=== PATIENT | male | born 1965 | race Caucasian/White ===

== ENCOUNTER 2024-08-03 18:15 | Inpatient (IN) | payer BC, OTHER, SELFPAY ==
[~2024-08-03] VITALS: Ht 182.9 cm; Wt 78.5 kg
[2024-08-03] MEDS: MORPHINE 4 MG/ML 1ML VIAL IV PRN (18:44)
[2024-08-03] MEDS ORDERED: ISOVUE-370 76% 100ML VIAL As Ordered ONE (18:50)
[2024-08-03 19:05] LABS: BASO # 0.1 10^3/uL (0.0-0.2); BASO % 0.7 % (0.0-1.0); EOS # 0.2 10^3/uL (0.0-0.5); HEMATOCRIT 42.4 % (42.0-52.0); HEMOGLOBIN 14.6 g/dl (13.5-17.5); LYMPH # 2.7 10^3/uL (1.5-5.0); LYMPH % 27.9 % (24.0-44.0); MEAN CORPUSCULAR HEMOGLOBIN 33.6 pg (27.0-33.0); MEAN CORPUSCULAR HGB CONC 34.4 g/dl (32.0-36.5); MEAN CORPUSCULAR VOLUME 97.7 fl (80.0-96.0); MONO # 0.8 10^3/uL (0.0-0.8); MONO % 8.1 % (2.0-8.0); NEUTROPHILS # 5.9 10^3/uL (1.5-8.5); PLATELET COUNT, AUTOMATED 226 10^3/uL (150-450); RED BLOOD COUNT 4.34 10^6/uL (4.30-6.10); WHITE BLOOD COUNT 9.7 10^3/uL (4.0-10.0)
[2024-08-03 19:13] LABS: INR 0.96; PROTHROMBIN TIME 13.1 SECONDS (12.5-14.5)
[2024-08-03 19:30] LABS: ETHYL ALCOHOL (ETHANOL) 0.146 % (0.000-0.010)
[2024-08-03 19:31] LABS: BLOOD UREA NITROGEN 14 MG/DL (9-23); CALCIUM LEVEL 9.2 MG/DL (8.5-10.1); CARBON DIOXIDE LEVEL 21 MMOL/L (20-31); CHLORIDE LEVEL 101 MMOL/L (98-107); CREATININE FOR GFR 0.86 MG/DL (0.70-1.30); GLOMERULAR FILTRATION RATE > 60.0 (>56); GLUCOSE, FASTING 72 MG/DL (60-100); POTASSIUM SERUM 4.2 MMOL/L (3.5-5.1); SODIUM LEVEL 134 MMOL/L (136-145)
[2024-08-03] MEDS ORDERED: OXAZEPAM 15MG CAP PO ONE (20:00)
[2024-08-03] MEDS ORDERED: ACETAMINOPHEN 325 MG TAB PO PRN (20:45)
[2024-08-03] MEDS ORDERED: BUPR150T12 PO (21:13)
[2024-08-03] MEDS ORDERED: TAMS1CAP17 PO (21:13)
[2024-08-03] MEDS ORDERED: LORazepam 2 MG TAB PO PRN (21:15)
[2024-08-03] MEDS ORDERED: COMBIVENT RESPIMAT 100-20MCG INHALER 4GM INH PRN (21:15)
[2024-08-03] MEDS ORDERED: HOME MED LIST COMPLETE! XX SCH (21:15)
[2024-08-03] MEDS: THIAMINE 100 MG TAB PO SCH (21:59)
[2024-08-03 22:40] VITALS: BP 139/75
[2024-08-03 22:43] VITALS: BP 129/81; TEMP 98.8; O2SAT 97
[2024-08-03] MEDS: KETOROLAC TROMETHAMINE 10 MG TAB PO PRN (23:24)
[2024-08-04] VITALS (11 sets, daily range): BP systolic 106–136; BP diastolic 65–83; TEMP 97.2–98.1; O2SAT 92–98
[2024-08-04] MEDS: FOLIC ACID 1MG TAB PO SCH (08:45)
[2024-08-04] MEDS: CYCLOBENZAPRINE 5MG TABLET PO SCH (08:45)
[2024-08-04] MEDS: TAMSULOSIN 0.4 MG CAP PO SCH (08:45)
[2024-08-04] MEDS: MULTIVITAMINS/MINERALS THERAP 1 TAB PO SCH (08:45)
[2024-08-04] MEDS: ACETAMINOPHEN 500 MG TAB PO SCH (08:45)
[2024-08-04] MEDS: buPROPion **XL** TABLET 150MG (WELLBUTRIN XL) PO SCH (08:45)
[2024-08-04] MEDS: GABAPENTIN 100 MG CAP PO SCH (08:45)
[2024-08-04] MEDS: KETOROLAC 30 MG/ML 1ML VIAL IV SCH (08:45)
[2024-08-04] MEDS ORDERED: HEPARIN SOD (PORCINE) 5000UNITS/ML 1ML VIAL/SYRINGE SC SCH (09:00)
[2024-08-04] MEDS ORDERED: MORPHINE 2 MG/ML 1ML VIAL IV PRN ×2 (09:50→14:35)
[2024-08-04] MEDS ORDERED: oxyCODONE 5MG TAB PO PRN (09:50)
[2024-08-04] MEDS ORDERED: ONDANSETRON 4MG 2ML VIAL IV PRN (09:50)
[2024-08-04] MEDS ORDERED: fentaNYL 100 MCG/2 ML INJECTION IV PRN ×2 (09:50→14:35)
[2024-08-04] MEDS: MIDAZOLAM INJ 2MG/2ML VIAL IV PRN (10:54)
[2024-08-04] MEDS: fentaNYL 100 MCG/2 ML INJECTION IV PRN (10:54)
[2024-08-04] MEDS: dexAMETHasone 10MG/1ML VIAL PRES.FREE PN ONE (11:02)
[2024-08-04] MEDS ORDERED: MIDAZOLAM INJ 2MG/2ML VIAL As Ordered ONE (12:06)
[2024-08-04] MEDS ORDERED: SUGAMMADEX SODIUM 500 MG/5 ML VIAL (BRIDION) As Ordered ONE (12:07)
[2024-08-04] MEDS ORDERED: LIDOCAINE 2% 100MG/5ML SDV (FOR ANES.) As Ordered ONE (12:07)
[2024-08-04] MEDS ORDERED: propofoL 200 MG/20 ML VIAL As Ordered ONE (12:07)
[2024-08-04] MEDS ORDERED: ROCURONIUM BROMIDE 50MG/5ML VIAL As Ordered ONE (12:07)
[2024-08-04] MEDS ORDERED: fentaNYL 100 MCG/2 ML INJECTION As Ordered ONE (12:07)
[2024-08-04] MEDS ORDERED: ACETAMINOPHEN 1000MG/100ML IV BAG As Ordered ONE (12:09)
[2024-08-04] MEDS ORDERED: ONDANSETRON 4MG 2ML VIAL As Ordered ONE (12:09)
[2024-08-04] MEDS ORDERED: KETOROLAC 60MG 2ML VIAL As Ordered ONE (12:09)
[2024-08-04] MEDS: ceFAZolin 1GM VIAL As Ordered ONE (12:11)
[2024-08-04] MEDS: BACITRACIN OINTMENT 30GM TUBE As Ordered ONE (12:11)
[2024-08-04] MEDS: CLINDAMYCIN 600MG/50ML PREMIX BAG As Ordered ONE (12:50)
[2024-08-04] MEDS: oxyCODONE 5MG TAB PO PRN (14:47)
[2024-08-04] MEDS: ONDANSETRON 4MG 2ML VIAL IV PRN (14:47)
[2024-08-04] MEDS: ceFAZolin SOD 2 GM in IV 1 EA IV SCH (20:39)
[2024-08-04] MEDS: MORPHINE 2 MG/ML 1ML VIAL IV PRN (21:57)
[2024-08-05] VITALS (7 sets, daily range): BP systolic 104–146; BP diastolic 55–78; TEMP 97.5–98.4; O2SAT 90–95
[2024-08-05 08:15] LABS: HEMATOCRIT 35.7 % (42.0-52.0); HEMOGLOBIN 12.4 g/dl (13.5-17.5); MEAN CORPUSCULAR HGB CONC 34.7 g/dl (32.0-36.5); MEAN CORPUSCULAR VOLUME 97.8 fl (80.0-96.0); PLATELET COUNT, AUTOMATED 216 10^3/uL (150-450); RED BLOOD COUNT 3.65 10^6/uL (4.30-6.10)
[2024-08-05 08:49] LABS: BLOOD UREA NITROGEN 20 MG/DL (9-23); CALCIUM LEVEL 8.6 MG/DL (8.5-10.1); CARBON DIOXIDE LEVEL 23 MMOL/L (20-31); CHLORIDE LEVEL 106 MMOL/L (98-107); CREATININE FOR GFR 0.82 MG/DL (0.70-1.30); GLOMERULAR FILTRATION RATE > 60.0 (>56); GLUCOSE, FASTING 107 MG/DL (60-100); POTASSIUM SERUM 4.5 MMOL/L (3.5-5.1); SODIUM LEVEL 136 MMOL/L (136-145)
[2024-08-05] MEDS ORDERED: CYCL5TAB4 PO (10:21)
[2024-08-05] MEDS ORDERED: IBUP-1114 PO (10:21)
[2024-08-05] MEDS ORDERED: ACET-683 PO (10:21)
[2024-08-05] MEDS ORDERED: ASPI-1 PO (10:27)
== END 2024-08-05 14:15 | disposition home or self-care (01) | DRG 313 ==
LOC: EDBD 18:15 → M ED 18:15 → M ED INP 20:42 → M MS5PR 22:31
PROVIDERS: ADMIT Student in an Organized Health Care Education/Training Program; ATTEND Student in an Organized Health Care Education/Training Program
PROC: 0QSH36Z Reposition Left Tibia with Intramedullary Internal Fixation Device, Percutaneous Approach (ICD-10-PCS; principal; 2024-08-04 11:55)
DX: S82.232A Displaced oblique fracture of shaft of left tibia, initial encounter for closed fracture (principal); J44.9 Chronic obstructive pulmonary disease, unspecified; S82.452A Displaced comminuted fracture of shaft of left fibula, initial encounter for closed fracture; N40.0 Benign prostatic hyperplasia without lower urinary tract symptoms; F10.10 Alcohol abuse, uncomplicated; Z87.891 Personal history of nicotine dependence; Z79.899 Other long term (current) drug therapy; W17.89XA Other fall from one level to another, initial encounter; Y92.89 Other specified places as the place of occurrence of the external cause; Y93.89 Activity, other specified; Y99.0 Civilian activity done for income or pay

== ENCOUNTER → 2024-08-19 | Outpatient (CLI) | payer OTHER ==
[~2024-08-19] MED LIST: ACET-683 PO; ASPI-1 PO; BUPR150T12 PO; CYCL5TAB4 PO; IBUP-1114 PO; TAMS1CAP17 PO
== END ==
LOC: M SOG 07:50
PROVIDERS: ATTEND Physician Assistant
DX: Z47.89 Encounter for other orthopedic aftercare (principal); S82.452D Displaced comminuted fracture of shaft of left fibula, subsequent encounter for closed fracture with routine healing